=== PATIENT | female | born 1995 | race Caucasian/White ===

== ENCOUNTER 2017-08-20 14:37 | Emergency (ER) | payer MEDICAID ==
[~2017-08-20] VITALS: Ht 175.3 cm; Wt 61.0 kg
[2017-08-20 15:22] LABS: BASOPHILS % 0.7 % (0.0-2.0); EOSINOPHILS % 0.6 % (0.0-5.0); HEMATOCRIT. 36.4 % (36.0-48.0); HEMOGLOBIN. 12.4 g/dL (12.0-16.0); LYMPHOCYTES % 19.7 % (20.0-50.0); MEAN CORPUSCULAR HEMOGLOBIN 30.3 pg (28.0-32.0); MEAN CORPUSCULAR VOLUME 88.9 fL (81.0-99.0); MEAN PLATELET VOLUME 8.4 fl (7.4-10.4); MONOCYTES % 7.3 % (2.0-8.0); NEUTROPHILS % 71.7 % (40.0-76.0); PLATELET 212 x1000/uL (130-400); RED BLOOD CELL COUNT 4.09 mill/uL (4.2-5.4); RED CELL DISTRIBUTION WIDTH 13.5 % (11.6-14.6)
[2017-08-20 15:25] LABS: CHLORIDE 103 mEq/L (98-107)
[2017-08-20 15:36] LABS: HCG SCREEN NEGATIVE
[2017-08-20 15:37] LABS: CARBON DIOXIDE 26 mEq/L (21-32); TROPONIN I < 0.02 ng/mL (0.00-0.04)
[2017-08-20 15:57] LABS: INR 1.1; PARTIAL THROMBOPLASTIN TIME 28.6 sec (23.4-31.0)
[2017-08-20] MEDS ORDERED: LEVOFLOXACIN 500MG TABLET PO ONE (16:00)
[2017-08-20] MEDS ORDERED: PREDNISONE 20MG TABLET PO ONE (16:00)
[2017-08-20] MEDS ORDERED: IPRATROPIUM/ALBUTEROL 0.5-3(2.5)MG/3ML NEB HHN ONE (16:00)
[2017-08-20 18:18] VITALS: BP 109/68
== END 2017-08-20 18:52 | disposition home or self-care (01) ==
LOC: ER 14:37
DX: J18.9 Pneumonia, unspecified organism (principal); F17.200 Nicotine dependence, unspecified, uncomplicated; F12.10 Cannabis abuse, uncomplicated
CPT/HCPCS: 36415; 71010; 80053; 83690; 83880; 84443; 84484; 84703; 85025; 85610; 85730; 93005; 94640; 99285; 99406; J7512; J7620

== ENCOUNTER 2017-08-27 01:47 | Inpatient (IN) | payer MEDICAID, OTHER ==
[~2017-08-27] VITALS: Ht 162.6 cm; Wt 61.2 kg
[2017-08-27 03:00] LABS: BASOPHILS % 0.4 % (0.0-2.0); EOSINOPHILS % 0.7 % (0.0-5.0); HEMATOCRIT. 33.6 % (36.0-48.0); HEMOGLOBIN. 11.4 g/dL (12.0-16.0); LYMPHOCYTES % 40.4 % (20.0-50.0); MEAN CORPUSCULAR HEMOGLOBIN 29.9 pg (28.0-32.0); MEAN CORPUSCULAR VOLUME 88.3 fL (81.0-99.0); MEAN PLATELET VOLUME 8.1 fl (7.4-10.4); MONOCYTES % 8.1 % (2.0-8.0); NEUTROPHILS % 50.4 % (40.0-76.0); PLATELET 197 x1000/uL (130-400); RED BLOOD CELL COUNT 3.81 mill/uL (4.2-5.4); RED CELL DISTRIBUTION WIDTH 13.6 % (11.6-14.6)
[2017-08-27 03:11] LABS: D-DIMER < 0.19 mg/L FEU (<0.50); HCG SCREEN NEGATIVE; INR 1.1; PARTIAL THROMBOPLASTIN TIME 25.7 sec (23.4-31.0); PROTHROMBIN TIME 11.3 sec (9.4-11.6)
[2017-08-27 03:25] LABS: CARBON DIOXIDE 31 mEq/L (21-32); CHLORIDE 103 mEq/L (98-107)
[2017-08-27] MEDS ORDERED: IBUPROFEN 600MG TABLET PO ONE (03:45)
[2017-08-27] MEDS ORDERED: POTASSIUM CHLORIDE 20MEQ TABLET SR PO ONE (03:45)
[2017-08-27] MEDS ORDERED: SODIUM CHLORIDE 0.9% 1000ML BAG (SEPSIS BOLUS) IV ONE (05:45)
[2017-08-27] MEDS ORDERED: VANCOMYCIN 1 G PREMIX 200 ML IV ONE (05:45)
[2017-08-27] MEDS ORDERED: LEVOFLOXACIN 750MG PREMIX 150 ML IV ONE (05:45)
[2017-08-27 06:08] LABS: TROPONIN I < 0.02 ng/mL (0.00-0.04)
[2017-08-27 06:35] LABS: CLARITY URINE CLEAR (CLEAR); COLOR URINE YELLOW (YELLOW); GLUCOSE URINE NEGATIVE (NEGATIVE); KETONES URINE NEGATIVE (NEGATIVE); LEUKOCYTE ESTERASE URINE NEGATIVE (NEGATIVE); NITRITE URINE NEGATIVE (NEGATIVE); OCCULT BLOOD URINE NEGATIVE (NEGATIVE); PH URINE 6.5 (4.5-8.0); PROTEIN URINE NEGATIVE (NEGATIVE); UROBILINOGEN URINE 0.2 E.U./dL (0.2-1.0)
[2017-08-27] MEDS ORDERED: ASPIRIN 325MG EC TABLET PO ONE (07:00)
[2017-08-27] MEDS ORDERED: PIPERACILLIN/TAZ 3.375G PREMIX 50 ML IV SCH (08:30)
[2017-08-27] MEDS ORDERED: ACETAMINOPHEN 325MG TABLET PO PRN (08:30)
[2017-08-27] MEDS ORDERED: ONDANSETRON HCL 4MG/2ML VIAL IV PRN (08:30)
[2017-08-27] MEDS ORDERED: IPRATROPIUM/ALBUTEROL 0.5-3(2.5)MG/3ML NEB INH PRN (08:30)
[2017-08-27] MEDS ORDERED: CLONIDINE 0.1MG TABLET PO PRN (08:30)
[2017-08-27] MEDS ORDERED: MAGNESIUM/ALUMINUM HYDROXIDE/SIMETHICONE 30ML UDC PO PRN (08:30)
[2017-08-27] MEDS: ASPIRIN 81MG EC TABLET PO SCH (09:00)
[2017-08-27] MEDS ORDERED: CONTRACEPTIVE (09:25)
[2017-08-27] MEDS ORDERED: ALBU6.7H INH (09:27)
[2017-08-27 09:30] VITALS: BP 101/55
[2017-08-27 12:00] VITALS: BP 100/48
[2017-08-27] MEDS: PIPERACILLIN/TAZ 3.375G PREMIX 50 ML IV SCH ×3 (12:05→21:46)
[2017-08-27] MEDS: HYDROCODONE/ACETAMINOPHEN 5/325MG TABLET PO PRN ×2 (12:19→21:50)
[2017-08-27] MEDS: VANCOMYCIN 1250MG in DEXTROSE 5% WATER 250ML IV SCH ×2 (14:16→22:22)
[2017-08-27 16:00] VITALS: BP 98/54
[2017-08-28] VITALS: BP 96/45
[2017-08-28 04:00] VITALS: BP 94/59
[2017-08-28] MEDS: PIPERACILLIN/TAZ 3.375G PREMIX 50 ML IV SCH ×2 (05:28→15:06)
[2017-08-28] MEDS: VANCOMYCIN 1250MG in DEXTROSE 5% WATER 250ML IV SCH (05:28)
[2017-08-28 06:13] LABS: BASOPHILS % 0.5 % (0.0-2.0); EOSINOPHILS % 2.5 % (0.0-5.0); HEMATOCRIT. 37.5 % (36.0-48.0); HEMOGLOBIN. 12.7 g/dL (12.0-16.0); LYMPHOCYTES % 36.3 % (20.0-50.0); MEAN CORPUSCULAR VOLUME 88.2 fL (81.0-99.0); MEAN PLATELET VOLUME 8.4 fl (7.4-10.4); MONOCYTES % 8.4 % (2.0-8.0); NEUTROPHILS % 52.3 % (40.0-76.0); PLATELET 244 x1000/uL (130-400); RED BLOOD CELL COUNT 4.25 mill/uL (4.2-5.4); RED CELL DISTRIBUTION WIDTH 13.6 % (11.6-14.6)
[2017-08-28 08:00] VITALS: BP 99/58
[2017-08-28 08:33] LABS: CHLORIDE 103 mEq/L (98-107)
[2017-08-28 08:41] LABS: CARBON DIOXIDE 26 mEq/L (21-32); HDL CHOLESTEROL 66 mg/dL (40-59); LDL CHOLESTEROL 60 mg/dL (5-100); VANCOMYCIN TROUGH 6.2 ug/mL (5.0-10.0)
[2017-08-28] MEDS: ASPIRIN 81MG EC TABLET PO SCH (08:58)
[2017-08-28] MEDS ORDERED: PANTOPRAZOLE 40MG DR TABLET PO SCH (11:15)
[2017-08-28 12:00] VITALS: BP 92/57
[2017-08-28] MEDS ORDERED: VANCOMYCIN 1250MG in DEXTROSE 5% WATER 250ML IV SCH (12:00)
[2017-08-28 16:00] VITALS: BP 106/54
[2017-08-28 16:49] VITALS: BP 106/54
== END 2017-08-28 19:40 | disposition home or self-care (01) | DRG 139 ==
LOC: ER 04:03 → 7WST 05:49 → ENRESERV 06:57
PROVIDERS: ADMIT Hospitalist; ATTEND Hospitalist
DX: J18.9 Pneumonia, unspecified organism (principal); J47.0 Bronchiectasis with acute lower respiratory infection; E87.6 Hypokalemia; F12.90 Cannabis use, unspecified, uncomplicated; F17.200 Nicotine dependence, unspecified, uncomplicated; Z87.730 Personal history of (corrected) cleft lip and palate; Z88.1 Allergy status to other antibiotic agents
CPT/HCPCS: 36415; 71010; 71250; 80048; 80053; 80061; 80202; 81003; 83605; 83880; 84484; 84703; 85025; 85379; 85610; 85730; 87040; 87086; 93005; 96365; 96366; 96375; 99285; J1956; J2405; J2543; J3370; J7030; J7050; J7060